=== PATIENT | female | born 1990 | race Caucasian/White ===

== ENCOUNTER 2021-05-19 22:08 | Inpatient (IN) | payer OTHER ==
[2021-05-19] MEDS ORDERED: Ondansetron 4 MG/2 ML SDV IVPUSH ONE (22:58)
[2021-05-19] MEDS ORDERED: HYDROmorphone 0.5 MG/0.5 ML Syringe IVPUSH ONE (22:58)
[2021-05-19] MEDS ORDERED: Sodium Chloride 0.9% 1,000 ML IV SCH (23:00)
--- NOTE | 2021-05-19 23:56 | EDM.PDOC ---
ED HPI GENERAL MEDICAL PROBLEM - General Chief Complaint: Abdominal Pain Stated Complaint: STOMACH PAIN/RT SIDE Time Seen by Provider: 05/19/21 22:45 Source of Information: Reports: Patient, Family History Limitations: Reports: No Limitations - History of Present Illness INITIAL COMMENTS - FREE TEXT/NARRATIVE: 31-year-old female with right upper abdominal pain radiating to her back for the last 12 hours. Nausea but no vomiting, no fevers or chills. She is also concerned that she has developed some mildly dark urine over the past 4 hours. She has had this problem off and on for the past 3 months but it has never lasted more than 2 or 3 hours, today she is concerned because it has been lasting 12 hours. No shortness of breath, no chest pain, no other complaints. Onset: Sudden (Started fairly suddenly about 12 hours ago) Location: Reports: Abdomen (Right upper quadrant radiating to her back) Improves with: Reports: None Worsens with: Reports: None Associated Symptoms: Reports: Malaise. Denies: Cough, Shortness of Breath Back Pain Score (Numeric/FACES): 8 - Related Data Allergies Allergy/AdvReac Type Severity Reaction Status Date / Time No Known Allergies Allergy Verified 05/19/21 22:33 Home Meds: Home Meds Omeprazole 1 tab PO DAILY 05/19/21 [History] l-Norgest/E.estradiol-E.estrad [Camrese 0.15-0.03-0.01 MG] 1 tab PO DAILY 05/19/21 [History] Past Medical History [employer] History: Reports: - Infectious Disease History Infectious Disease History: Reports: Chicken Pox - Past Surgical History Female Surgical History: Reports: Section Social & Family History - Family History Family Medical History: No Pertinent Family History - Tobacco Use Tobacco Use Status *Q: Never Tobacco User - Caffeine Use Caffeine Use: Reports: None - Recreational Drug Use Recreational Drug Use: No ED ROS GENERAL - Review of Systems Review Of Systems: See Below Constitutional: Denies: Fever, Chills HEENT: Reports: No Symptoms Respiratory: Denies: Shortness of Breath, Cough Cardiovascular: Denies: Chest Pain GI/Abdominal: Reports: Abdominal Pain, Nausea. Denies: Constipation, Diarrhea, Vomiting Musculoskeletal: Reports: Back Pain Skin: Reports: No Symptoms Neurological: Reports: No Symptoms Psychiatric: Reports: No Symptoms ED EXAM, GI/ABD - Physical Exam Exam: See Below Exam Limited By: No Limitations General Appearance: Alert, No Apparent Distress (Looks uncomfortable but not distressed) Eyes: Bilateral: Normal Appearance (Well-hydrated, no obvious jaundice) Head: Atraumatic Respiratory/Chest: No Respiratory Distress, Lungs Clear Cardiovascular: Regular Rate, Rhythm. No: Tachycardia GI/Abdominal Exam: Normal Bowel Sounds, Soft, Tender (Tender with guarding in the right upper quadrant, no significant rebound tenderness) Extremities: No: Pedal Edema Neurological: Alert, Oriented Psychiatric: Normal Affect, Normal Mood Skin Exam: Warm, Dry Course - Vital Signs Last Recorded V/S: Last Vital Signs Temp 97.0 F 05/20/21 00:55 Pulse 75 05/20/21 00:55 Resp 18 05/20/21 00:55 BP 149/92 H 05/20/21 00:55 Pulse Ox 100 05/20/21 00:55 - Orders/Labs/Meds Orders: Active Orders 24 hr Category Date Time Status Sodium Chloride 0.9% [Normal Saline] 1,000 ml Med 05/19/21 23:00 Active IV ASDIRECTED Medication Orders Diphenhydramine HCl (Diphenhydramine 25 Mg Cap) 25 mg PO Q4H PRN PRN Reason: Itching Diphenhydramine HCl (Diphenhydramine 50 Mg/Ml Sdv) 25 mg IVPUSH Q4H PRN PRN Reason: Itching Diphenhydramine HCl (Diphenhydramine 50 Mg/Ml Sdv) 50 mg IVPUSH Q4H PRN PRN Reason: Itching Fentanyl (Fentanyl 100 Mcg/2 Ml Sdv) 10 mcg IVPUSH Q1H PRN PRN Reason: Pain (mild 1-3) Fentanyl (Fentanyl 100 Mcg/2 Ml Sdv) 20 mcg IVPUSH Q1H PRN PRN Reason: Pain (moderate 4-6) Fentanyl (Fentanyl 100 Mcg/2 Ml Sdv) 30 mcg IVPUSH Q1H PRN PRN Reason: Pain (severe 7-10) Sodium Chloride (Normal Saline) 1,000 mls @ 500 mls/hr IV ASDIRECTED YAZAN Last Admin: 05/19/21 23:41 Dose: 500 mls/hr Documented by: SARA Promethazine HCl 12.5 mg/ (Sodium Chloride) 50.5 mls @ 200 mls/hr IV Q8H PRN PRN Reason: Nausea/Vomiting Promethazine HCl 25 mg/ Sodium (Chloride) 51 mls @ 200 mls/hr IV Q8H PRN PRN Reason: Nausea/Vomiting Sodium Chloride (Normal Saline) 1,000 mls @ 125 mls/hr IV ASDIRECTED YAZAN Morphine Sulfate (Morphine 4 Mg/Ml Syringe) 1 mg IVPUSH Q1H PRN PRN Reason: Pain (mild 1-3) Morphine Sulfate (Morphine 4 Mg/Ml Syringe) 2 mg IVPUSH Q1H PRN PRN Reason: Pain (moderate 4-6) Morphine Sulfate (Morphine 4 Mg/Ml Syringe) 3 mg IVPUSH Q1H PRN PRN Reason: Pain (severe 7-10) Ondansetron HCl (Ondansetron 4 Mg/2 Ml Sdv) 4 mg IVPUSH Q8H PRN PRN Reason: Nausea/Vomiting Scopolamine (Scopolamine 1.5 Mg Transdermal Patch) 1.5 mg TRDERM Q72H PRN PRN Reason: Nausea Labs: Laboratory Tests 05/19/21 05/19/21 05/19/21 Range/Units 23:05 23:05 23:05 WBC 8.1 (4.5-11.0) K/uL RBC 4.76 (3.30-5.50) M/uL Hgb 14.8 (12.0-15.0) g/dL Hct 43.1 (36.0-48.0) % MCV 91 (80-98) fL MCH 31 (27-31) pg MCHC 34 (32-36) % Plt Count 280 (150-400) K/uL Neut % (Auto) 66.9 H (36-66) % Lymph % (Auto) 25.3 (24-44) % Spencer % (Auto) 6.2 H (2-6) % Eos % (Auto) 1.1 L (2-4) % Baso % (Auto) 0.5 (0-1) % Sodium 138 L (140-148) mmol/L Potassium 3.5 L (3.6-5.2) mmol/L Chloride 102 (100-108) mmol/L Carbon Dioxide 26 (21-32) mmol/L Anion Gap 13.5 (5.0-14.0) mmol/L BUN 13 (7-18) mg/dL Creatinine 0.9 (0.6-1.0) mg/dL Est Cr Clr Drug Dosing 74.92 mL/min Estimated GFR (MDRD) > 60 (>60) Glucose 98 (74-106) mg/dL Calcium 8.6 (8.5-10.1) mg/dL Total Bilirubin 2.6 H (0.2-1.0) mg/dL AST 258 H (15-37) U/L ALT 250 H (12-78) U/L Alkaline Phosphatase 105 (46-116) U/L Total Protein 7.2 (6.4-8.2) g/dL Albumin 3.6 (3.4-5.0) g/dL Globulin 3.6 H (2.3-3.5) g/dL Albumin/Globulin Ratio 1.0 L (1.2-2.2) Lipase 172 (73-393) U/L Urine Color Yellow (YELLOW) Urine Appearance Clear (CLEAR) Urine pH 7.0 (5.0-8.0) Ur Specific Barney 1.015 (1.008-1.030) Urine Protein Negative (NEGATIVE) mg/dL Urine Glucose (UA) Negative (NEGATIVE) mg/dL Urine Ketones Negative (NEGATIVE) mg/dL Urine Occult Blood Negative (NEGATIVE) Urine Nitrite Negative (NEGATIVE) Urine Bilirubin Negative (NEGATIVE) Urine Urobilinogen 1.0 (0.2-1.0) EU/dL Ur Leukocyte Esterase Negative (NEGATIVE) Urine RBC 0-5 (0-5) Urine WBC 0-5 (0-5) Ur Epithelial Cells Few Amorphous Sediment Not seen Urine Bacteria Few Urine Mucus Not seen Meds: Medications Generic Name Dose Route Start Last Admin Trade Name Freq PRN Reason Stop Dose Admin Diphenhydramine HCl 25 mg 05/20/21 00:28 Diphenhydramine 25 Mg Cap PO Q4H PRN Itching Diphenhydramine HCl 25 mg 05/20/21 00:28 Diphenhydramine 50 Mg/Ml Sdv IVPUSH Q4H PRN Itching Diphenhydramine HCl 50 mg 05/20/21 00:28 Diphenhydramine 50 Mg/Ml Sdv IVPUSH Q4H PRN Itching Fentanyl 10 mcg 05/20/21 00:28 Fentanyl 100 Mcg/2 Ml Sdv IVPUSH Q1H PRN Pain (mild 1-3) Fentanyl 20 mcg 05/20/21 00:28 Fentanyl 100 Mcg/2 Ml Sdv IVPUSH Q1H PRN Pain (moderate 4-6) Fentanyl 30 mcg 05/20/21 00:28 Fentanyl 100 Mcg/2 Ml Sdv IVPUSH Q1H PRN Pain (severe 7-10) Sodium Chloride 1,000 mls @ 500 mls/hr 05/19/21 23:00 05/19/21 23:41 Normal Saline IV 500 mls/hr ASDIRECTED YAZAN Administration Promethazine HCl 12.5 mg/ 50.5 mls @ 200 mls/hr 05/20/21 00:28 Sodium Chloride IV Q8H PRN Nausea/Vomiting Promethazine HCl 25 mg/ Sodium 51 mls @ 200 mls/hr 05/20/21 00:28 Chloride IV Q8H PRN Nausea/Vomiting Sodium Chloride 1,000 mls @ 125 mls/hr 05/20/21 00:45 Normal Saline IV ASDIRECTED YAZAN Morphine Sulfate 1 mg 05/20/21 00:28 Morphine 4 Mg/Ml Syringe IVPUSH Q1H PRN Pain (mild 1-3) Morphine Sulfate 2 mg 05/20/21 00:28 Morphine 4 Mg/Ml Syringe IVPUSH Q1H PRN Pain (moderate 4-6) Morphine Sulfate 3 mg 05/20/21 00:28 Morphine 4 Mg/Ml Syringe IVPUSH Q1H PRN Pain (severe 7-10) Ondansetron HCl 4 mg 05/20/21 00:28 Ondansetron 4 Mg/2 Ml Sdv IVPUSH Q8H PRN Nausea/Vomiting Scopolamine 1.5 mg 05/20/21 00:28 Scopolamine 1.5 Mg Transdermal Patch TRDERM Q72H PRN Nausea Discontinued Medications Generic Name Dose Route Start Last Admin Trade Name Freq PRN Reason Stop Dose Admin Hydromorphone HCl 0.5 mg 05/19/21 22:58 05/19/21 23:33 Hydromorphone 0.5 Mg/0.5 Ml Syringe IVPUSH 05/19/21 22:59 0.5 mg ONETIME ONE Administration Ondansetron HCl 4 mg 05/19/21 22:58 05/19/21 23:33 Ondansetron 4 Mg/2 Ml Sdv IVPUSH 05/19/21 22:59 4 mg ONETIME ONE Administration - Re-Assessments/Exams Free Text/Narrative Re-Assessment/Exam: 05/20/21 00:32 An IV was started, patient was given 0.5 mg of IV Dilaudid and 4 mg of IV Zofran. Meklr-op-rmul ultrasound showed numerous stones in the gallbladder with a positive Ann sign. Bilirubin returned 2.6, alk phos and ALT were elevated. She received moderate pain control with medications but was still very uncomfortable. White count was normal. Lipase was normal. She obviously has cholelithiasis now resulting in cholecystitis. Discussed the case with Dr. Jason, he kindly accepted her admission for stabilization tonight, pain control, and cholecystectomy tomorrow. Departure - Departure Time of Disposition: 01:10 Disposition: Admitted As Inpatient 66 Clinical Impression: Cholecystitis, acute Abdominal pain Qualifiers: Abdominal location: right upper quadrant Qualified Code(s): R10.11 - Right upper quadrant pain - Discharge Information Sepsis Event Note (ED) - Evaluation Sepsis Screening Result: No Definite Risk - Focused Exam Vital Signs: Vital Signs Temp Pulse Resp BP Pulse Ox 05/19/21 22:38 97.2 F 90 16 142/98 H 98 05/19/21 22:31 97.2 F 90 16 172/103 H 98 - My Orders Last 24 Hours: My Active Orders 05/19/21 23:00 Sodium Chloride 0.9% [Normal Saline] 1,000 ml IV ASDIRECTED - Assessment/Plan Last 24 Hours: My Active Orders 05/19/21 23:00 Sodium Chloride 0.9% [Normal Saline] 1,000 ml IV ASDIRECTED
[2021-05-20] MEDS ORDERED: Ondansetron 4 MG/2 ML SDV IVPUSH PRN (00:28)
[2021-05-20] MEDS ORDERED: Promethazine 25 MG in Sodium Chloride 0.9% 50 ML IV PRN (00:28)
[2021-05-20] MEDS ORDERED: Promethazine 12.5 MG in Sodium Chloride 0.9% 50 ML IV PRN (00:28)
[2021-05-20] MEDS ORDERED: Scopolamine 1.5 MG Transdermal Patch TRDERM PRN (00:28)
[2021-05-20] MEDS ORDERED: fentaNYL 100 MCG/2 ML SDV IVPUSH PRN ×3 (00:28)
[2021-05-20] MEDS ORDERED: diphenhydrAMINE 50 MG/ML SDV IVPUSH PRN (00:28)
[2021-05-20] MEDS ORDERED: diphenhydrAMINE 25 MG Cap PO PRN (00:28)
[2021-05-20] MEDS ORDERED: Morphine 4 MG/ML Syringe IVPUSH PRN ×3 (00:28)
[2021-05-20] MEDS: Sodium Chloride 0.9% 1,000 ML IV SCH ×2 (01:46→10:01)
[2021-05-20] MEDS: diphenhydrAMINE 50 MG/ML SDV IVPUSH PRN ×2 (03:03→12:20)
[2021-05-20] MEDS ORDERED: fentaNYL 250 MCG/5 ML SDV ONE ×2 (07:28→11:00)
[2021-05-20] MEDS ORDERED: Succinylcholine 200 MG/10 ML MDV ONE (07:29)
[2021-05-20] MEDS ORDERED: Dexamethasone 4 MG/ML SDV ONE (07:29)
[2021-05-20] MEDS ORDERED: Propofol 200 MG/20 ML SDV ONE (07:29)
[2021-05-20] MEDS ORDERED: Glycopyrrolate 0.2 MG/ML 5 ML MDV ONE (07:29)
[2021-05-20] MEDS ORDERED: Neostigmine Methylsulfate 1 MG/ML 5 ML Syringe ONE (07:29)
[2021-05-20] MEDS ORDERED: Ondansetron 4 MG/2 ML SDV ONE (07:29)
[2021-05-20] MEDS ORDERED: Rocuronium 50 MG/5 ML Vial ONE (07:29)
[2021-05-20] MEDS ORDERED: Hypromellose 0.3% Ophth Soln 15 ML Bottle EYEBOTH PRN (10:07)
[2021-05-20] MEDS ORDERED: Zolpidem 5 MG Tab PO PRN (10:12)
[2021-05-20] MEDS ORDERED: hydrOXYzine HCL 100 MG/2 ML SDV IM PRN (10:12)
[2021-05-20] MEDS ORDERED: Benzocaine/Cetylpyridinium/Menthol Lozenge MUCMEM PRN (10:12)
[2021-05-20] MEDS ORDERED: Acetaminophen/HYDROcodone 325-5 MG Tab PO PRN (10:12)
[2021-05-20] MEDS ORDERED: Docusate Sodium 100 MG Cap PO PRN (10:12)
[2021-05-20] MEDS ORDERED: Bupivacaine 0.5% 50 ML MDV ONE (10:23)
[2021-05-20] MEDS ORDERED: Lidocaine 1% with EPINEPHrine 1:100,000 50 ML MDV ONE (10:23)
[2021-05-20] MEDS ORDERED: ceFAZolin 2 GM in Premix Bag 1 BAG IV ONE (10:45)
[2021-05-20] MEDS ORDERED: metroNIDAZOLE/Normal Saline 500 MG in Premix Bag 1 BAG IV ONE (10:45)
[2021-05-20] MEDS ORDERED: Ketorolac 30 MG/ML SDV ONE (11:43)
[2021-05-20] MEDS ORDERED: Acetaminophen 325 MG Tab PO PRN (16:14)
--- NOTE | 2021-05-22 11:07 | CONS ---
DATE OF SERVICE: 05/20/2021 REFERRING PHYSICIAN: CONSULTING PHYSICIAN: Toi Jason MD A consult from Dr. Bryce Thorpe. REASON FOR CONSULTATION: Abdominal pain. HISTORY OF PRESENT ILLNESS: A 31-year-old female who has had approximately less than 24 hours of right upper quadrant abdominal pain associated with nausea, but no vomiting, shortness of breath, fevers, or chills. This is an ongoing problem for her for several months. Pain is now described as 6 to 7 out of 10. FAMILY HISTORY: Positive. SOCIAL HISTORY: She is not a smoker. REVIEW OF SYSTEMS: GENERAL: Appropriate for condition. HEENT: No symptoms. RESPIRATORY: No symptoms. CARDIOVASCULAR: No history of myocardial infarction. GASTROINTESTINAL: No acholic stools. MUSCULOSKELETAL: Chronic back pain. SKIN: No symptoms. NEUROLOGICAL: No symptoms. PSYCHIATRIC: No gross symptoms. PHYSICAL EXAMINATION: VITAL SIGNS: Temperature 97.2, blood pressure 142/98, pulse 90, respirations 16, and 98% on room air. HEENT: Pupils are equal. NECK: Supple. LUNGS: Clear. CARDIOVASCULAR: Regular rhythm and rate. RESPIRATORY: Lungs clear to auscultation bilaterally. ABDOMEN: Pain with palpation in the right upper quadrant. EXTREMITIES: Full range of motion. NEUROLOGICAL: Oriented x3. PSYCHIATRIC: No gross depression. LABORATORY DATA: Laboratory results show white blood cell count is normal. AST and ALT are slightly elevated with a bilirubin of 2.6. IMAGING: Imaging showed stones in the gallbladder, positive Ann sign. ASSESSMENT: 1. Cholelithiasis. 2. Cholecystitis. PLAN: The patient and I discussed options including transfer due to elevated bilirubin. At this point, she has decided to undergo laparoscopic cholecystectomy. We discussed risks, benefits, alternatives, and limitations including, but not limited to infection, bleeding, cystic duct leaks, and common bile duct injuries. We also discussed with her bilirubin 2.6. Most likely, this is related to her cholecystitis; however, she might have a choledocholithiasis issue, which we did discuss with her, and she is going to have the surgery, go home today, and then she is to follow up within the next 24 to 48 hours with her primary care doctor for a recheck of bilirubin. We discussed the signs and symptoms of choledocholithiasis with her along with the risks of the general procedure as described above. We also discussed risks, benefits, alternatives, and limitations of TAP/rectus sheath block. Toi Jason MD /[id number]
--- NOTE | 2021-05-22 12:52 | OR ---
DATE OF PROCEDURE: 05/20/2021 SURGEON: Toi Jason MD PROCEDURE PERFORMED: Laparoscopic cholecystectomy. FINDINGS: Cholelithiasis, cholecystitis. COMPLICATIONS: None. FIELD MACHINIST: None. ANESTHESIA: General. RISKS: Risks, benefits, alternatives, and limitations including, but not limited to infection, bleeding, cystic duct leaks, common bile duct injuries, possibility of open surgery, hematoma, seroma, and other risks not listed here were explained to the patient, and she wished to proceed. PROCEDURE IN DETAIL: The patient was placed in the supine position. A supraumbilical curvilinear incision was made. A Veress needle was used to enter the abdomen without abnormality, and a drop test was performed without abnormality. The abdomen was subsequently insufflated, and an Optiview trocar was inserted. No evidence of enterotomy or injury. An additional 10 and two 5 mm ports were entered under direct visualization. The gallbladder was retracted cephalad. The infundibulum was retracted inferolaterally. Using blunt dissection, a "clear view" of the gallbladder was obtained with a single pulsatile structure into the gallbladder and a single non-pulsatile structure into the gallbladder. These were subsequently clipped x3 and transected. The remaining 1/3rd of the gallbladder was removed off the gallbladder bed without difficulty. This was delivered through the superior port with a bag without difficulty. The abdomen was re-insufflated. The liver bed was inspected for bleeding, which was controlled with electrocautery. The pressure was dropped to 7. No other bleeding was noted. The abdomen was re-irrigated and reinspected for bleeding, none was noted. The wounds were closed with 3-0 Vicryl and 4-0 Vicryl after liquid and air removed. Dermabond was applied. The patient tolerated the procedure well. Toi Jason MD /[id number]
--- NOTE | 2021-05-22 12:52 | OR ---
DATE OF PROCEDURE: 05/20/2021 SURGEON: Toi Jason MD PROCEDURES PERFORMED: 1. Transversus abdominis plane block bilaterally. 2. Bilateral rectus sheath blocks. COMPLICATIONS: None. BULK STATION OPERATOR: None. RISKS: Risks, benefits, alternatives, and limitations including, but not limited to infection, bleeding, and injury to abdominal structures were explained to the patient who wished to proceed. PROCEDURE IN DETAIL: The patient was placed in the supine position. The right transversus plane was identified first. This was accessed using a 21-gauge needle under direct 13 MHz ultrasound guidance. 20% of the solution was injected. This was repeated on the other side. Bilateral rectus sheaths were injected in the posterior rectus sheath also using a 13 MHz ultrasound probe. 20% of the solution was injected respectively. All 4 procedures were performed in the same manner, same fashion, same technique, in the same sequence, using the same equipment. At no point was the needle blindly advanced without ultrasound guidance. The patient tolerated the procedure well. Toi Jason MD /[id number]
== END 2021-05-20 15:45 | disposition home or self-care (01) | DRG 419 ==
LOC: JP.ED 22:08 → JP.MS 05-20 00:19
PROVIDERS: ADMIT Surgery; ATTEND Surgery
PROC: 0FT44ZZ Resection of Gallbladder, Percutaneous Endoscopic Approach (ICD-10-PCS; principal; 2021-05-20)
DX: K80.10 Calculus of gallbladder with chronic cholecystitis without obstruction (principal); Z79.899 Other long term (current) drug therapy; Z20.822 Contact with and (suspected) exposure to COVID-19
CPT/HCPCS: 36415; 80053; 81001; 83690; 85025; A9270-GY; J0171; J0330; J0690; J1100; J1170; J1200; J1885; J2270; J2405; J2704; J2710; J2795; J3010; J3490; J7030; U0002